=== PATIENT | female | born 1960 | race African-American/Black ===

== ENCOUNTER 2017-11-14 08:18 | Outpatient (CLI) | payer OTHER | END 2017-11-14 08:19 | disposition home or self-care (01) | LOC: BICMAMMO 08:18 | PROVIDERS: ATTEND Family Medicine | DX: Z12.31 Encounter for screening mammogram for malignant neoplasm of breast (principal) | CPT/HCPCS: 77063; 77067 ==

== ENCOUNTER 2018-06-15 08:49 | Emergency (ER) | payer OTHER, SELFPAY ==
[2018-06-15] MEDS ORDERED: Ibuprofen 200 MG TAB ONE (09:05)
--- NOTE | 2018-06-15 10:11 | RAD ---
CHEST PA AND LATERAL: HISTORY: A 58-year-old female with a history of cough, sore throat, fever, and chills. COMPARISON: 12/14/2012. FINDINGS: Heart size is normal. The lungs are clear. IMPRESSION: No acute intrathoracic disease. POS: [facility]
[2018-06-15] MEDS ORDERED: Dexamethasone 4 mg/ml Vial ONE (10:45)
== END 2018-06-15 10:50 | disposition home or self-care (01) ==
LOC: ERS 08:49
DX: J02.9 Acute pharyngitis, unspecified (principal); K21.9 Gastro-esophageal reflux disease without esophagitis; E78.5 Hyperlipidemia, unspecified; I10 Essential (primary) hypertension; Z79.899 Other long term (current) drug therapy; Z79.82 Long term (current) use of aspirin
CPT/HCPCS: 71046; 87804; 96372; J1100

== ENCOUNTER 2018-12-02 07:49 | Outpatient (CLI) | payer OTHER ==
--- NOTE | 2018-12-02 08:32 | MMO ---
Bilateral MAMMO Bilat Screen [facility]. CLINICAL HISTORY: Patient is 58 years old and is seen for screening. The patient has no family history of breast cancer. The patient has no personal history of cancer. VIEWS: The views performed were: bilateral craniocaudal with tomosynthesis and bilateral mediolateral oblique with tomosynthesis. FILMS COMPARED: The present examination has been compared to prior imaging studies performed at [facility] on 02/13/2012, 08/20/2013, 08/23/2014, 08/14/2016 and 11/14/2017. MAMMOGRAM FINDINGS: The breasts are heterogeneously dense, which could obscure a lesion on mammography. There are no suspicious masses, suspicious calcifications, or new areas of architectural distortion. IMPRESSION: THERE IS NO MAMMOGRAPHIC EVIDENCE OF MALIGNANCY. A ROUTINE FOLLOW-UP MAMMOGRAM IN 1 YEAR IS RECOMMENDED. THE RESULTS OF THIS EXAM WERE SENT TO THE PATIENT. ACR BI-RADS Category 1 - Negative MAMMOGRAPHY NOTE: 1. A negative mammogram report should not delay a biopsy if a dominant of clinically suspicious mass is present. 2. Approximately 10% to 15% of breast cancers are not detected by mammography. 3. Adenosis and dense breasts may obscure an underlying neoplasm.
== END 2018-12-02 07:50 | disposition home or self-care (01) ==
LOC: BICMAMMO 07:49
PROVIDERS: ATTEND Family Medicine
DX: Z12.31 Encounter for screening mammogram for malignant neoplasm of breast (principal)
CPT/HCPCS: 77063; 77067

== ENCOUNTER 2018-12-17 17:17 | Emergency (ER) | payer OTHER ==
[2018-12-17] MEDS ORDERED: Ketorolac Tromethamine 30 MG/ML VIAL ONE (17:37)
--- NOTE | 2018-12-17 18:24 | RAD ---
RIGHT KNEE: 12/17/18 Four views. HISTORY: Pain right knee. Mild degenerative changes with minimal spurring from the condyles. Joint spaces are preserved. Mild spurring from the posterior patella. I cannot exclude small joint effusion. No fracture or acute abn ormality. IMPRESSION: Mild degenerative changes. Question small joint effusion. POS: [facility]
== END 2018-12-17 18:22 | disposition home or self-care (01) ==
LOC: ERS 17:17
DX: M79.604 Pain in right leg (principal); K21.9 Gastro-esophageal reflux disease without esophagitis; E78.5 Hyperlipidemia, unspecified; I10 Essential (primary) hypertension; Z79.899 Other long term (current) drug therapy; X50.9XXA Other and unspecified overexertion or strenuous movements or postures, initial encounter
CPT/HCPCS: 96372; J1885

== ENCOUNTER 2019-03-31 10:40 | Emergency (ER) | payer OTHER ==
--- NOTE | 2019-03-31 13:36 | RAD ---
XR Lumbar Spine 2 Or 3 View History: Right lower extremity pain. Neuropathy. Comparison: None. Findings: Small bilateral T12 ribs. Sacralization of the L5 vertebra. Narrowing of the lower lumbar spine disc spaces. No acute fracture. No listhesis. Phleboliths in the pelvis. No dilated loops of bowel in the abdomen. Mild degenerative disease both SI joints. Large left costophrenic osteophyte formation. Impression: Low-grade lower lumbar spondylosis.
== END 2019-03-31 14:09 | disposition home or self-care (01) ==
LOC: ERS 10:40
DX: G62.9 Polyneuropathy, unspecified (principal); M25.561 Pain in right knee; E78.5 Hyperlipidemia, unspecified; I10 Essential (primary) hypertension; Z79.899 Other long term (current) drug therapy
CPT/HCPCS: 72100

== ENCOUNTER 2023-09-18 07:35 | Outpatient (CLI) | payer BC | END 2023-09-18 07:36 | disposition home or self-care (01) | LOC: BICCT 07:35 | PROVIDERS: ATTEND Physician Assistant Medical | DX: R10.32 Left lower quadrant pain (principal); K63.89 Other specified diseases of intestine | CPT/HCPCS: 74177; 82565 ==

== ENCOUNTER 2023-11-15 07:55 | Outpatient (CLI) | payer BC, OTHER | END 2023-11-15 07:56 | disposition home or self-care (01) | LOC: BICMAMMO 07:55 | PROVIDERS: ATTEND Physician Assistant | DX: Z12.31 Encounter for screening mammogram for malignant neoplasm of breast (principal); N63.42 Unspecified lump in left breast, subareolar | CPT/HCPCS: 77063; 77067 ==

== ENCOUNTER 2023-11-28 13:30 | Outpatient (CLI) | payer BC | END 2023-11-28 13:31 | disposition home or self-care (01) | LOC: BICMAMMO 13:30 | PROVIDERS: ATTEND Physician Assistant | DX: N63.42 Unspecified lump in left breast, subareolar (principal); N60.02 Solitary cyst of left breast; R92.322 Mammographic fibroglandular density, left breast | CPT/HCPCS: G0279 ==